=== PATIENT | female | born 1960 | race Caucasian/White ===

== ENCOUNTER 2022-05-09 18:53 | Emergency (ER) | payer OTHER ==
[2022-05-09 19:38] LABS: Hemoglobin 12.1 g/dL (12.0-16.0); Mean Corpuscular HGB CONC 32.6 g/dL (32.0-36.0); Mean Corpuscular Hemoglobin 27.7 pg (27.0-31.0); Mean Corpuscular Volume 85.1 fL (78.0-98.0); Mean Platelet Volume 7.4 fL (7.4-10.4); Platelet Count 352 thou/uL (130-400); RBC Distribution Width 13.5 % (11.5-14.5); Red Blood Cell (RBC) Count 4.37 mill/uL (4.20-5.40); White Blood Cell (WBC) Count 11.4 thou/uL (4.8-10.8)
[2022-05-09 20:17] LABS: ALT (SGPT) 20 U/L (8-55); AST (SGOT) 17 U/L (5-34); Albumin 3.7 g/dL (3.4-4.8); Alkaline Phosphatase 151 U/L (40-110); Anion Gap 15 mmol/L (10-20); BUN (Urea Nitrogen) 9 mg/dL (9.8-20.1); Bilirubin, Total 0.3 mg/dL (0.2-1.2); Calc. Creatinine Clearance 0 mL/min (70-130); Calcium 8.9 mg/dL (7.8-10.44); Carbon Dioxide 21 mmol/L (23-31); Chloride 107 mmol/L (98-107); Estimated GFR 60; Globulin 2.9 g/dL (2.4-3.5); Glucose 100 mg/dL (80-115); Protein, Total 6.6 g/dL (5.8-8.1); Sodium 140 mmol/L (136-145)
[2022-05-09 20:24] LABS: Potassium 2.9 mmol/L (3.5-5.1)
[2022-05-09 20:57] LABS: Band 1 % (5-11); Eosinophils 29 % (0-10); Lymphocytes 19 % (21-51); MDiff Complete? YES; Monocytes 4 % (0-10); Neutrophil 47 % (42-75); Platelet Morphology Comment Appears Adequate; RBC Morphology Normal
[2022-05-09] MEDS ORDERED: Potassium Chloride 20 MEQ TAB ONE (21:16)
[2022-05-09] MEDS ORDERED: cefTRIAXone\\ROCEPHIN 1 GM VIAL ONE (21:21)
[2022-05-09] MEDS ORDERED: Lidocaine 1% MPF 2 ML VIAL ONE (21:23)
[2022-05-09 22:10] LABS: Bilirubin Negative (Negative); Blood, Urine Negative (Negative); Clarity Clear (Clear); Glucose, Urine (Dipstick) Normal (Negative); Ketone, Urine Negative (Negative); Leukocyte 75 Leu/uL (Negative); Mucous/LPF 4+ LPF (<2+); Nitrite Negative (Negative); Protein, Urine (Dipstick) 30 mg/dL (Neg-Trace); RBC/HPF 0-3 HPF (0-3); Specific Gravity, Urine 1.029 (1.002-1.036); WBC/HPF 21-50 HPF (0-3)
[2022-05-09 22:18] LABS: Bacteria/HPF 1+ HPF (None Seen)
== END 2022-05-09 22:38 | disposition home or self-care (01) ==
LOC: ERS 18:53
DX: S70.311A Abrasion, right thigh, initial encounter (principal); S70.312A Abrasion, left thigh, initial encounter; S30.810A Abrasion of lower back and pelvis, initial encounter; S80.812A Abrasion, left lower leg, initial encounter; S80.811A Abrasion, right lower leg, initial encounter; N30.00 Acute cystitis without hematuria; K21.9 Gastro-esophageal reflux disease without esophagitis; X58.XXXA Exposure to other specified factors, initial encounter
CPT/HCPCS: 36415; 80053; 81003; 81015; 83605; 85025; 87086; 94760; 96372; J0696

== ENCOUNTER 2022-08-13 10:00 | Emergency (ER) | payer OTHER | END 2022-08-13 10:25 | disposition home or self-care (01) | LOC: ERS 10:00 | DX: E11.40 Type 2 diabetes mellitus with diabetic neuropathy, unspecified (principal); B35.3 Tinea pedis; L03.90 Cellulitis, unspecified; K21.9 Gastro-esophageal reflux disease without esophagitis | CPT/HCPCS: 99282 ==